=== PATIENT | female | born 1950 | race Caucasian/White ===

== ENCOUNTER 2021-12-30 16:35 | Emergency (ER) | payer SELFPAY ==
[2021-12-30 16:49] VITALS: BP 131/49; PULSE 67; RESP 18; TEMP 36.6; O2SAT 99
--- NOTE | 2021-12-30 16:59 | ED.GENADULT ---
HPI - General Adult General Chief complaint: Unspecified Stated complaint: perscriptions refilled Time Seen by Provider: 12/30/21 16:50 Source: patient Mode of arrival: ambulatory Limitations: no limitations History of Present Illness HPI narrative: Ms. Mccallum is a 71-year-old female patient presenting to the clinic today with complaints of needing her medications refilled. She is currently taking medications for high blood pressure, depression, hypercholesterolemia, hypothyroidism, and GERD. She feels well managed on these medications and has recently started running out. She reports that she just moved here from [place] and does not currently have a primary care provider. She moved to [place] to be closer to family. She is also currently without insurance however she is having a Medicare wellness visit here in the next few days to begin her Medicare benefits. Related Data Home Medications Medication Instructions Recorded Confirmed amlodipine 5 mg PO DAILY 12/30/21 12/30/21 fluoxetine 60 mg PO BID 12/30/21 12/30/21 levothyroxine 75 mcg PO DAILY 12/30/21 12/30/21 metoprolol tartrate 25 mg PO BID 12/30/21 12/30/21 pantoprazole 40 mg PO QAM 12/30/21 12/30/21 rosuvastatin 20 mg PO DAILY 12/30/21 12/30/21 Allergies Allergy/AdvReac Type Severity Reaction Status Date / Time Sulfa (Sulfonamide AdvReac Mild Rash Verified 12/30/21 16:57 Antibiotics) Review of Systems Review of Systems: Pertinent positives per HPI. Patient denies any fever, chills, rash, headache, visual changes, dizziness, cough, runny nose, sore throat, shortness of breath, chest pain, palpitations, nausea, vomiting, diarrhea, constipation, abdominal pain, or any urinary issues. PMFSH Comments At the time of my signature, I reviewed and agree with the nursing past medical, surgical, social, and family history. There is no relevant family history pertinent to the patient complaint. Exam Narrative: General: Well-developed, well nourished, in no apparent distress Head: Normocephalic, atraumatic Neck: Supple, no anterior or posterior cervical lymph node enlargement, no goiter or thyromegaly Cardio: Regular rate and rhythm, s1 and s2 normal, no murmur appreciated. Resp: Clear to auscultation bilaterally, no rhonchi, rales, wheezing or rubs. Extremities: No deformity, no edema, no cyanosis, capillary refill less than 2 seconds, peripheral pulses palpable and strong. Integumentary: Bowles, warm, and dry, intact without lesion, no rashes. Course Course Emergency Course: Portions of this record may have been created with voice recognition software. Level of Care: Express Care Visit Vital Signs Vital signs: Vital Signs Temperature 36.6 C 12/30/21 16:49 Pulse Rate 67 12/30/21 16:49 Respiratory Rate 18 12/30/21 16:49 Blood Pressure 131/49 L 12/30/21 16:49 Pulse Oximetry 99 12/30/21 16:49 Temperature 36.6 C 12/30/21 16:49 Pulse Rate 67 12/30/21 16:49 Respiratory Rate 18 12/30/21 16:49 Blood Pressure 131/49 L 12/30/21 16:49 Pulse Oximetry 99 12/30/21 16:49 Vital signs reviewed Medical Decision Making MDM Narrative Medical decision making narrative: At the time of visit patient is resting comfortably in the exam chair. States that she feels that her medications are well managed. Denies any thoughts of self-harm or harming others. When asked to verify medications she did state that she is taking the dosage of 60 mg of the duloxetine twice a day and states that they had to put her on that high dose to keep her managed and has been on that for a while. Discussed medication refill with patient and I will give her a 90-day refill and pamphlet for new providers and Xapo card was also given to the patient today. Follow-up as needed. Spoke with [facility] pharmacy and fluoxetine prescription changed to duloxetine 60 mg twice daily for 90 days and this was verified with the pharmacist. Vital Signs Vital Signs: Vital Signs
== END 2021-12-30 17:11 | disposition home or self-care (01) ==
PROVIDERS: Emergency Provider Nurse Practitioner Family
DX: I10 Essential (primary) hypertension (principal); E78.00 Pure hypercholesterolemia, unspecified; E03.9 Hypothyroidism, unspecified; K21.9 Gastro-esophageal reflux disease without esophagitis; F32.A Depression, unspecified
CPT/HCPCS: 99211; G0463